=== PATIENT | female | born 1955 | race Caucasian/White ===

== ENCOUNTER 2020-03-18 13:45 | Emergency (ER) | payer OTHER ==
[~2020-03-18] VITALS: Ht 165.1 cm; Wt 70.3 kg
[2020-03-18 13:45] VITALS: BP_SYST 152
--- NOTE | 2020-03-18 14:00 | NUR ---
Joel daniel in ED - 03/18/20 at 1803 by SOTOW Pt came to ER for abdominal pain, Nausea, vomiting. Pt in [place] resting, on monitor, VSS
[2020-03-18] MEDS ORDERED: PANTOPRAZOLE SODIUM 40 MG/VIAL (PROTONIX) IVP ONE (14:15)
[2020-03-18] MEDS ORDERED: NACL 0.9% 1,000 ML IV ONE ×2 (14:15→15:45)
[2020-03-18 14:55] LABS: BASOPHILS % (AUTO) 0.3 % (0.0-2.0); EOSINOPHILS % (AUTO) 0.4 % (0.0-4.0); HEMATOCRIT 39.4 % (36-48); HEMOGLOBIN 13.6 g/dL (12.0-16.0); LYMPHOCYTES # (AUTO) 0.9 K/uL (1.0-5.5); LYMPHOCYTES % (AUTO) 14.6 % (20.5-51.5); MEAN CORPUSCULAR HEMOGLOBIN 30 pg (27-31); MEAN CORPUSCULAR HGB CONC 35 % (32-36); MEAN CORPUSCULAR VOLUME 86 fL (79.0-98.0); MONOCYTES # (AUTO) 0.4 K/uL (0.0-1.0); MONOCYTES % (AUTO) 6.4 % (1.7-9.3); NEUTROPHILS % (AUTO) 78.3 % (40.0-70.0); PLATELET COUNT (AUTO) 227 K/uL (130-430); RED CELL DISTRIBUTION WIDTH 12.5 % (9.0-15.0); WHITE BLOOD COUNT (AUTO) 6.4 K/uL (4.8-10.8)
[2020-03-18 15:14] LABS: ANION GAP 8 (5-15); CALCIUM 8.6 mg/dL (8.4-11.0); CHLORIDE 101 mmol/L (98-107); CREATININE 0.79 mg/dL (0.55-1.30); GLUCOSE 121 mg/dL (70-99); POTASSIUM 3.2 mmol/L (3.5-5.1); SODIUM SERUM 136 mmol/L (136-145); UREA NITROGEN, BLOOD 18 mg/dL (8-21)
[2020-03-18 15:15] LABS: GFR AFRICAN AMERICAN 94 mL/min (>90)
--- NOTE | 2020-03-18 15:18 | NUR ---
Patient to ER bed 3 to gown for evaluation. Side rails up. Report given to ANTHONY Alford.
[2020-03-18 15:22] LABS: ALANINE AMINOTRANSFERASE 23 U/L (12-78); ALBUMIN 4.1 g/dL (3.4-4.8); ASPARTATE AMINOTRANSFERASE 18 U/L (10-37); TOTAL BILIRUBIN 0.5 mg/dL (0.0-1.0)
--- NOTE | 2020-03-18 15:30 | NUR ---
Pt came to ER for abdominal pain, Nausea, vomiting. Pt in [place] resting, on monitor, VSS
[2020-03-18] MEDS ORDERED: ONDANSETRON HCL 4 MG/2 ML VIAL IVP ONE (15:45)
[2020-03-18] MEDS ORDERED: KETOROLAC TROMETHAMINE 30 MG VIAL IVP ONE (15:45)
--- NOTE | 2020-03-18 15:45 | NUR ---
ER at bedside examining patient.
[2020-03-18 17:17] VITALS: BP_SYST 140
--- NOTE | 2020-03-18 17:30 | NUR ---
Patient given written and verbal discharge instructions and verbalizes understanding. ER MD discussed with patient the results and treatment provided. Patient in stable condition. ID arm band removed. IV catheter removed intact and dressing applied, no active bleeding. Rx of Miralax given. Patient educated on pain management and to follow up with PMD. Pain Scale 0/10. Opportunity for questions provided and answered. Medication side effect fact sheet provided.
== END 2020-03-18 17:30 | disposition home or self-care (01) ==
LOC: SED 13:45
DX: K29.00 Acute gastritis without bleeding (principal); I10 Essential (primary) hypertension; E03.9 Hypothyroidism, unspecified
CPT/HCPCS: 36415; 71045; 76700; 80053; 83690; 84484; 85025; 93005; 96361; 96374; 96375; 99285; J7030; C9113; J1885; J2405